=== PATIENT | female | born 1930 | race Caucasian/White ===

== ENCOUNTER 2016-11-18 04:37 | Inpatient (IN) | payer OTHER ==
[~2016-11-18] VITALS: Ht 144.8 cm; Wt 64.4 kg
[~2016-11-18 04:37] MED LIST: AMLODIPINE BESYL5 M1 PO; CIPRO500 M1 PO
--- NOTE | 2016-11-18 15:14 | Patient Discharge Instructions ---
Discharge Instructions General Discharge Information You were seen/treated for: Left hip pain You had these procedures: Left total hip replacement Watch for these problems: Increasing pain, redness, warmth, swelling. Drainage of any type from incision. Inability to bear weight on left leg. Fever greater than 101.5. Do not soak the wound: Yes No bath, but you may shower: Yes Other wound care: Keep wound clean and dry Special Instructions: Incision: Dry dressing. May shower. No baths. No ointments of any kind. Ice as needed. Bowel regimen: Colace and or MiraLAX Weight-bearing as tolerated Follow-up with Dr. Taylor in 6 weeks. Call office for fevers greater than 101.5, excessive drainage or inability to bear weight on operative extremity. Visiting nurse will change dressing. Diet Continue normal diet: Yes Recommended Diet: Regular Activity Full Activity/No Limits: No Activity Self Limited: Yes Pounds, do NOT lift more than: 10 Additional ACTIVITY Info: Weight-bear as tolerated Acute Coronary Syndrome Inclusion Criteria At DC or during hospital stay patient has or had the following: ACS DIAGNOSIS No Discharge Core Measures Meds if any: Prescribed or Continued at Discharge Meds if any: NOT Prescribed or Continued at Discharge Congestive Heart Failure Inclusion Criteria At DC or during hospital stay patient has or had the following: CHF DIAGNOSIS No Discharge Core Measures Meds if any: Prescribed or Continued at Discharge Meds if any: NOT Prescribed or Continued at Discharge Cerebrovascular accident Inclusion Criteria At DC or during hospital stay patient has or had the following: CVA/TIA Diagnosis No Discharge Core Measures Meds if any: Prescribed or Continued at Discharge Meds if any: NOT Prescribed or Continued at Discharge Venous thromboembolism Inclusion Criteria VTE Diagnosis No VTE Type NONE VTE Confirmed by (Test) NONE Discharge Core Measures - Per Current guidelines, there needs to be overlap - treatment for the first 5 days of Warfarin therapy. - If discharged on Warfarin prior to 5 days of - overlap therapy, the patient will need to be - assessed for post discharge needs including - *Post discharge parental anticoagulation - *Warfarin and/or parental anticoagulation education - *Follow up date to check INR post discharge At least 5 days overlap therapy as Inpatient No Meds if any: Prescribed or Continued at Discharge Note: Overlap Therapy is Warfarin and Anticoagulant Meds if any: NOT Prescribed or Continued at Discharge
--- NOTE | 2016-11-18 15:25 | Surgical Discharge Summary ---
See Addendum Visit Information Visit Dates Admission Date: 11/18/16 Discharge Date: 11/21/16 History of Present Illness Chief Complaint: Left hip pain Medical History Isolation History: Standard Surgical History Pertinent Surgical History: non-contributory Review of Systems: See H&P Hospital Course Course Attending Physician: DARI MEAD MD Primary Care Physician: RAYMON MURPHY,JONAH Liao Hospital Course: Patient was admitted to the hospital on 11/18/2016 for an elective left total hip replacement. She tolerated the procedure well. She was transferred to a general surgical floor. Her diet was advanced and tolerated. Her vital signs are stable and within normal limits. She voided spontaneously. She was evaluated and treated by physical therapy. Her pain was well controlled. She was deemed appropriate for discharge. Allergies: Coded Allergies: Sulfa (Sulfonamide Antibiotics) (Intermediate, rash 11/16/16) Disposition Summary Disposition Principal Diagnosis: Left hip unilateral primary osteoarthritis Additional Diagnosis: None Discharge Disposition: SNF Discharge Instructions General Discharge Information Code Status: Full Code Patient's Diet: Regular, advance as tolerated Patient's Activity: Weight-bear as tolerated on left leg Follow-Up Instructions/Appts: Incision: Dry dressing. May shower. No baths. No ointments of any kind. Ice as needed. Bowel regimen: Colace and or MiraLAX Weight-bearing as tolerated Follow-up with Dr. Mead in 6 weeks. Call office for fevers greater than 101.5, excessive drainage or inability to bear weight on operative extremity. Visiting nurse will change dressing. Medications at Discharge Discharge Medications: Continue taking these medications: Ciprofloxacin HCl (Cipro) 500 MG TABLET 1 Tablet ORAL TWICE DAILY Comments: NOT GIVEN IN HOSPITAL Amlodipine Besylate (Amlodipine Besylate) 5 MG TABLET 1 Tablet ORAL DAILY Comments: Last Taken: 11/21/16 Time: 0930AM Start taking the following new medications: Hydromorphone HCl (Dilaudid) 2 MG TABLET 1-2 Tablet ORAL Q4-6H as needed for PAIN SCALE Qty = 36 No Refills Comments: Last Taken: 11/19/16 Time: 1345PM Docusate Sodium (Colace) 100 MG CAPSULE 1 Capsule ORAL TWICE DAILY Qty = 14 No Refills Comments: Last Taken: 11/20/16 Time: 1000AM Polyethylene Glycol 3350 (Miralax) 17 GRAM POWD.PACK 1 Packet ORAL DAILY Qty = 7 No Refills Instructions: dissolve in water, DISCONTINUE USE IF YOU DEVELOP LOOSE STOOL OR DIARRHEA Comments: Last Taken: 11/20/16 Time: 1000AM Omeprazole Magnesium (Prilosec Otc) 20 MG TABLET. 1 Tablet ORAL DAILY Qty = 30 No Refills Comments: Last Taken: 11/21/16 Time: 0600AM Aspirin (Ecotrin*) 325 MG TABLET. 1 Tablet ORAL TWICE DAILY Qty = 60 No Refills Comments: Last Taken: 11/21/16 Time: 0930AM
--- NOTE | 2016-11-18 15:47 | RADIOLOGY REPORT ---
EXAMINATION: XR HIP, LEFT CLINICAL INFORMATION: Left total hip replacement COMPARISON: None TECHNIQUE: AP and crosstable lateral of the left hip. FINDINGS: The components of the total hip arthroplasty are in their expected positions. There is approximately 42 degrees of lateral version and 26 degrees anteversion of the acetabular cup. The femoral head prosthesis is well centered within the acetabular cup. The femoral stem is positioned within the medullary cavity of the proximal femoral diaphysis and there is no evidence of acute periprosthetic fracture. There is postoperative soft tissue gas and soft tissue swelling of the hip. 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 IMPRESSION: Satisfactory position and alignment of components of the left total hip arthroplasty. No acute periprosthetic fracture.
--- NOTE | 2016-11-18 16:47 | Operative Report ---
Operative/Inv Procedure Report Surgery Date: 11/18/16 Name of Procedure: Left Total hip replacement Pre-Operative Diagnosis: Primary left hip DJD Post-Operative Diagnosis: Same Estimated Blood Loss: 250 Surgeon/Polls Or Surveys Interviewer: BOSTON MURPHY,DARI Rodriguez Anesthesia: block Operative/Procedure Note Note: Description of Procedure: The patient was taken to the operating room and positively identified. After induction of spinal anesthesia and administration of appropriate pre-operative antibiotics, the patient was positioned supine on the operating room table and all bony prominences were well padded. After performing a surgical timeout, the left lower extremity was prepped and draped in the usual sterile fashion. A direct anterior approach was made to the left hip. The incision was carried sharply through superficial soft tissues to the level of the fascia. Meticulous hemostasis was maintained with Bovie electocautery. The fascia over the tensor fascia tommy muscle was opened sharply and the interval between the TFL and the sartorius was entered bluntly taking care to stay lateral to the lateral femoral cutaneous nerve. Retractors were placed around the femoral neck and the pericapsular fat was identified. The ascending branches of the lateral femoral circumflex vessels were identified and carefully coagulated. The pericapsular fat and anterior capsule were then resected. A napkin ring osteotomy was performed and the femoral head was removed without difficulty. Attention was then turned to the acetabulum. After appropriate placement of retractors, the acetabulum was exposed. Soft tissue was cleaned from the acetabular margin and notch. Overhanging osteophytes were removed and the teardrop was exposed. The acetabulum was then sequentially reamed to accept a 52 mm Carey Tritanium hemispherical solid back shell. This was impacted into place in the appropriate position and fitted with a 36 mm Trident X3 zero degree polyethylene insert. Attention was then turned to the femur. After performing the appropriate ligament releases, the proximal femur was exposed. It was then sequentially broached to accept a size 3 [place] accolade 2 stem. This was trialed for leg length and stability. The trial component was removed and the final component was impacted into place. The trunnion was carefully cleaned and fit with a 36 mm, -2.5 Biolox delta ceramic femoral head. The hip was reduced and put through a full range of motion and found to be stable. The articular space was then irrigated with sterile saline. The periarticular soft tissues were infilitrated with Marcaine. The fascial layer was closed with interrupted #1 vicryl suture and the skin was re-approximated with interrupted 2 -0 vicryl. The skin was closed with a running 3-0 V-Lock suture. Steri-strips and a sterile dressing were applied. The patient was awakened and taken to the recovery room in satisfactory condition.
--- NOTE | 2016-11-18 16:48 | PN- Orthopedic ---
Subjective Subjective: The patient is seen this evening postoperatively. She reports her pain is under adequate control has no other complaints at the current time. He feels great and was surprised that she was able to ambulate comfortably this afternoon. Objective Vital Signs and I&Os Vital signs: Blood pressure 110/58, pulse 76, temperature 97.3, O2 saturation 99 % on room air I's and O's: 1750 ML's of lactated Ringer's in/300 ML's out of urine via Raymundo catheter/EBL 75 Physical Exam: Gen.: Alert and obvious distress Skin: Warm and dry Cardiac: S1 and S2 regular Pulmonary: Bilateral breath sounds were equal with good exchange Extremities: Bilateral lower extremities are warm without calf tenderness or significant edema. Gross motor and sensory were intact. Left hip dressing is clean, dry, and intact. Assessment/Plan Assessment/Plan Assessment: 86-year-old female status post left total hip arthroplasty. Postoperative patient is progressing as expected and her pain is adequately controlled. Plan: Out of bed and ambulate patient is weightbearing as tolerated Continue current pain regiment Start aspirin 325 mg by mouth twice a day first dose tonight GI and DVT prophylaxis 2 doses of postoperative prophylactic antibiotics Follow-up morning laboratory studies Keep Raymundo catheter and IV fluids until the morning Advance diet as tolerated Core Measures/Miscellaneous Venous Thromboembolism VTE Risk Factors: Age > 40, Surgery VTE Contraindications: No Contraindications VTE Prophylaxis Ordered Inpt: Mech & Pharm VTE Diagnosis: No Beta Loli Is Beta Loli a Home Med? No Antibiotics Is Patient on Antibiotics? Yes If Yes: prophylaxis
[2016-11-18 16:56] VITALS: BP 110/68
[2016-11-18 19:00] VITALS: BP 121/58
[2016-11-18 21:06] VITALS: BP 116/63
--- NOTE | 2016-11-18 23:06 | NUR ---
LATE ENTRY: PT ARRIVED TO FLOOR AT 1625 FROM PACU, S/P L TOTAL HIP VS 97.6 77 18 110/68 96% ROOM AIR, NO C/O PAIN A&O, DSG TO L HIP CDI, +CMS, +PEDAL PULSES ALPS ARE ON, TEDS TO BE PLACED AT DISCHARGE; BED ALARM PLACED FOR SAFETY KING D/C'D, DTV BY MIDNIGHT-HAS VOIDED IN BSC 250CC #20 IV TO LAC WITH D5 1/2 NS @ 75 ML/HR RUNNING DTR SPIKE WOULD LIKE CASE MGMT TO CONTACT HER REGARDING PT'S STR [phone] PATIENT ORIENTED TO ROOM AND CALL [facility] CONTINUE TO MONITOR.
[2016-11-19] VITALS: BP 105/58
[2016-11-19 00:23] VITALS: BP 92/56
[2016-11-19 04:30] VITALS: BP 105/58
--- NOTE | 2016-11-19 07:01 | PN- Orthopedic ---
Subjective Subjective: The patient was seen this morning postoperatively day #1. She reports some minor soreness at the incision has no other complaints at the current time. She has been getting out of bed to use the urinal and feels rather strong. She has no other complaints of current time and denies any chest pain or difficulty breathing. Objective Vital Signs and I&Os Vital Signs Date Time Temp Pulse Resp B/P Pulse O2 O2 Flow FiO2 Ox Delivery Rate 11/19 0023 96.9 79 20 92/56 97 Room Air 11/19 0000 105/58 11/18 2106 97.6 82 20 116/63 99 11/18 1900 97.4 85 20 121/58 99 11/18 1700 96 Room Air 11/18 1656 97.6 77 18 110/68 96 Room Air Intake & Output 11/19 0800 11/19 0000 11/18 1600 11/18 0800 11/18 0000 11/17 1600 Intake Total 2700 Output Total 625 Balance 2075 Intake, IV 2200 Intake, Oral 500 Output, Other 75 Output, Urine 550 Patient 142 lb Weight Physical Exam: Gen.: Alert and obvious distress Skin: Warm and dry Extremities: Bilateral reduction was warm without calf tenderness or significant edema. Left hip surgical dressing is clean, dry, and intact without signs of infection. Gross motor and sensory are intact. Assessment/Plan Assessment/Plan Assessment: 86-year-old female status post left total hip arthroplasty postoperative day #1. The patient is progressing as expected and her pain is under adequate control. Plan: Out of bed with physical therapy patient is weightbearing as tolerated Hep-Lock IV fluids Continue current pain regiment Aspirin 325 mg by mouth twice a day GI and DVT prophylaxis For surgical dressing change tomorrow Core Measures/Miscellaneous Venous Thromboembolism VTE Risk Factors: Age > 40, Surgery VTE Contraindications: No Contraindications VTE Prophylaxis Ordered Inpt: Mech & Pharm VTE Diagnosis: No Beta Loli Is Beta Loli a Home Med? No Antibiotics Is Patient on Antibiotics? Yes If Yes: prophylaxis
[2016-11-19 08:07] LABS: ABSOLUTE BASOPHIL COUNT 0 /CUMM (0.0-0.2); ABSOLUTE EOSINOPHIL COUNT 0 /CUMM (0.0-0.7); ABSOLUTE GRANULOCYTE CT 7.7 /CUMM (1.4-6.5); ABSOLUTE LYMPH COUNT 1.5 /CUMM (1.2-3.4); ABSOLUTE MONOCYTE COUNT 1.3 /CUMM (0.10-0.60); BASOPHIL % 0.4 % (0.0-2.0); EOSINOPHIL % 0.3 % (0-5); GRANULOCYTE % 72.6 % (42.2-75.2); MEAN CORPUSCULAR HGB 22.9 PG (27.0-31.0); MEAN CORPUSCULAR HGB CONC 32.1 G/DL (33.0-37.0); MEAN CORPUSCULAR VOLUME 71.4 FL (81.0-99.0); MEAN PLATELET VOLUME 10.7 FL (7.4-10.4); PLATELET COUNT 220 /CUMM (130-400); RED BLOOD CELL CT 4.21 /CUMM (4.20-5.40); WHITE BLOOD CELL COUNT 10.6 /CUMM (4.8-10.8)
[2016-11-19 08:12] VITALS: BP 120/64
[2016-11-19 16:10] VITALS: BP 116/58
[2016-11-19 23:38] VITALS: BP 122/58
--- NOTE | 2016-11-20 07:35 | PN- Orthopedic ---
Subjective Subjective: pod#2 s/p left [place] no major complaitns this am deneis cp, sob, no n+v with diet Objective Vital Signs and I&Os Vital Signs Date Time Temp Pulse Resp B/P Pulse O2 O2 Flow FiO2 Ox Delivery Rate 11/19 2338 98.1 91 20 122/58 96 Room Air 11/19 1610 98.1 100 20 116/58 97 11/19 1151 Room Air 11/19 0936 78 124/80 11/19 0812 98.0 89 20 120/64 97 Room Air Intake & Output 11/20 0800 11/20 0000 11/19 1600 11/19 0800 11/19 0000 11/18 1600 Intake Total 650 738 288 2784 Output Total 350 400 550 400 625 Balance -350 250 416 286 7424 Intake, IV 10 600 2200 Intake, Oral 650 900 120 500 Number 0 Bowel Movements Output, Other 75 Output, Urine 350 400 550 400 550 Patient 142 lb Weight Physical Exam: cv: rrr lungs: clear abd: +bs ext: drsg changed wound c/d/i no calf tenderness bilat distal cms intact Assessment/Plan Assessment/Plan ortho stable plan cont oob wtih pt asa fro dvt prophylaxis home d/c plan per pt Core Measures/Miscellaneous Venous Thromboembolism VTE Risk Factors: Age > 40, Surgery VTE Contraindications: No Contraindications VTE Prophylaxis Ordered Inpt: Mech & Pharm VTE Diagnosis: No Beta Loli Is Beta Loli a Home Med? No Antibiotics Is Patient on Antibiotics? Yes If Yes: prophylaxis
[2016-11-20 08:12] VITALS: BP 132/60
[2016-11-20 16:43] VITALS: BP 138/60
[2016-11-21 00:33] VITALS: BP 120/60
[2016-11-21 07:30] VITALS: BP 121/59
--- NOTE | 2016-11-21 08:41 | PN- Orthopedic ---
Subjective Subjective: NAEO. Patient without c/o. Pain well controlled. Tolerating PO without n/v. +flatus, +BM. OOB and ambulating with PT. Denies CP/SOB. Objective Vital Signs and I&Os Vital Signs Date Time Temp Pulse Resp B/P Pulse O2 O2 Flow FiO2 Ox Delivery Rate 11/21 0730 97.7 101 20 121/59 93 Room Air 11/21 0033 98.3 84 20 120/60 94 11/20 1643 98.4 101 20 138/60 95 Room Air Intake & Output 11/21 1600 11/21 0800 11/21 0000 11/20 1600 11/20 0811/20 0000 Intake Total 100 700 950 650 Output Total 800 350 400 Balance 100 700 150 -350 250 Intake, Oral 100 700 950 650 Number 2 Bowel Movements Output, Urine 800 350 400 Physical Exam: General: NAD, comfortable, A&Ox3 Chest: CTAB, no wheezes, no rales. Heart S1S2 normal. Abdomen: soft, nontender, nondistended. Ext: Left hip c/d/i. Left thigh compartments soft. No calve swelling/TTP, neurovascularly intact bilateral lower extremities Current Medications: Current Medications Sig/Leatha Start time Last Medication Dose Route Stop Time Status Admin Acetaminophen 650 MG Q4P PRN 11/18 170 AC PO Amlodipine Besylate 5 MG DAILY 11/19 1000 AC 11/20 PO 1015 Aspirin 325 MG BID 11/18 2200 AC 11/20 PO 2126 Bisacodyl 10 MG Q12P PRN 11/20 0715 AC SD Docusate Sodium 100 MG BID 11/18 2200 AC 11/20 PO 1015 Hydromorphone HCl 2 MG Q4P PRN 11/18 1700 AC 11/19 PO 1342 Hydromorphone HCl 4 MG Q4P PRN 11/18 1700 AC PO Morphine Sulfate 2 MG Q2P PRN 11/18 1700 AC IV Omeprazole 40 MG DAILY AC 11/19 0700 AC 11/21 PO 0559 Ondansetron HCl 4 MG Q6P PRN 11/18 1700 AC IV Patient Medication 1 ED .STK-MED ONE 11/20 1351 DC Teaching ED 11/20 1352 Polyethylene Glycol 17 GM DAILY 11/19 1000 AC 11/20 PO 1015 Promethazine HCl 12.5 MG Q6P PRN 11/18 1700 AC IV 11/25 1459 Assessment/Plan Assessment/Plan 86yo F POD#3 s/p Left total hip arthroplasyt. AVSS, patient progressing well. - Pain control - Bowel regimen - I/O's - OOB and ambulate with PT, WBAT - DC home if cleared by PT - ASA 325mg PO BID and ALPS - TEDS - Will d/w attending Core Measures/Miscellaneous Venous Thromboembolism VTE Risk Factors: Age > 40, Surgery VTE Contraindications: No Contraindications VTE Prophylaxis Ordered Inpt: Mech & Pharm VTE Diagnosis: No Beta Loli Is Beta Loli a Home Med? No Antibiotics Is Patient on Antibiotics? Yes If Yes: prophylaxis
[2016-11-21 09:24] VITALS: BP 132/78
[2016-11-21] MEDS ORDERED: MIRALAX17 G1 PO (10:04)
[2016-11-21] MEDS ORDERED: DILAUDID2 M1 PO (10:04)
[2016-11-21] MEDS ORDERED: PRILOSEC OTC20 M1 PO (10:04)
[2016-11-21] MEDS ORDERED: ASPIRIN EC325 M2 PO (10:04)
[2016-11-21] MEDS ORDERED: COLACE100 M1 PO (10:04)
== END 2016-11-21 12:08 | disposition home health service (06) | DRG 470 ==
LOC: ENRESERVDT → ENRESERVTM → ENPENDDIS 04:37 → SDA 04:37 → 2NB 04:37
PROVIDERS: Nurse Practitioner; ADMIT Orthopaedic Surgery
PROC: 0SRB04A Replacement of Left Hip Joint with Ceramic on Polyethylene Synthetic Substitute, Uncemented, Open Approach (ICD-10-PCS; principal; 2016-11-18)
DX: M16.12 Unilateral primary osteoarthritis, left hip (principal); I10 Essential (primary) hypertension; D56.3 Thalassemia minor
CPT/HCPCS: 73502-LT; 82436; 88304; 97110-GO; 97116-GO; 97161-GP; 97530-GO; J0690; J0735; J2405; J2550; J7042